=== PATIENT | male | born 1980 | race Hispanic/Latino ===

== ENCOUNTER 2020-01-14 07:55 | Outpatient (CLI) | payer MEDICAID ==
[2020-01-14] MEDS ORDERED: LIDOCAINE (4%) 40 MG/ML TOPICAL SOLN 50 ML BOTTLE TP ONE (08:19)
== END 2020-01-14 07:56 | disposition home or self-care (01) ==
LOC: WOUND 07:55
PROVIDERS: ATTEND Surgery
DX: S71.101A Unspecified open wound, right thigh, initial encounter (principal); L03.115 Cellulitis of right lower limb; G90.09 Other idiopathic peripheral autonomic neuropathy; K21.9 Gastro-esophageal reflux disease without esophagitis; F32.9 Major depressive disorder, single episode, unspecified; F41.9 Anxiety disorder, unspecified; F84.0 Autistic disorder; X58.XXXA Exposure to other specified factors, initial encounter; Y93.89 Activity, other specified; Y92.89 Other specified places as the place of occurrence of the external cause; Y99.8 Other external cause status
CPT/HCPCS: 99205; G0463

== ENCOUNTER 2020-01-29 08:31 | Outpatient (CLI) | payer MEDICAID ==
[2020-01-29] MEDS ORDERED: LIDOCAINE (4%) 40 MG/ML TOPICAL SOLN 50 ML BOTTLE TP ONE (08:32)
== END 2020-01-29 08:32 | disposition home or self-care (01) ==
LOC: WOUND 08:31
PROVIDERS: ATTEND Surgery
DX: S71.101D Unspecified open wound, right thigh, subsequent encounter (principal); L03.115 Cellulitis of right lower limb; K21.9 Gastro-esophageal reflux disease without esophagitis; F84.0 Autistic disorder; X58.XXXD Exposure to other specified factors, subsequent encounter

== ENCOUNTER 2020-02-05 08:35 | Outpatient (CLI) | payer MEDICAID ==
[2020-02-05] MEDS ORDERED: LIDOCAINE (4%) 40 MG/ML TOPICAL SOLN 50 ML BOTTLE TP ONE (09:00)
== END 2020-02-05 08:36 | disposition home or self-care (01) ==
LOC: WOUND 08:35
PROVIDERS: ATTEND Surgery
DX: S61.203A Unspecified open wound of left middle finger without damage to nail, initial encounter (principal); S61.207A Unspecified open wound of left little finger without damage to nail, initial encounter; S61.200A Unspecified open wound of right index finger without damage to nail, initial encounter; S61.206A Unspecified open wound of right little finger without damage to nail, initial encounter; S41.102A Unspecified open wound of left upper arm, initial encounter; L03.115 Cellulitis of right lower limb; K21.9 Gastro-esophageal reflux disease without esophagitis; F84.0 Autistic disorder; X58.XXXA Exposure to other specified factors, initial encounter; Y93.89 Activity, other specified; Y92.89 Other specified places as the place of occurrence of the external cause; Y99.8 Other external cause status

== ENCOUNTER 2020-03-25 09:34 | Outpatient (CLI) | payer MEDICAID ==
[2020-03-25] MEDS ORDERED: LIDOCAINE (4%) 40 MG/ML TOPICAL SOLN 50 ML BOTTLE TP SCH (10:00)
== END 2020-03-25 09:35 | disposition home or self-care (01) ==
LOC: WOUND 09:34
PROVIDERS: ATTEND Surgery
DX: S61.203D Unspecified open wound of left middle finger without damage to nail, subsequent encounter (principal); S61.200D Unspecified open wound of right index finger without damage to nail, subsequent encounter; S41.102D Unspecified open wound of left upper arm, subsequent encounter; L03.115 Cellulitis of right lower limb; K21.9 Gastro-esophageal reflux disease without esophagitis; F84.0 Autistic disorder; X58.XXXD Exposure to other specified factors, subsequent encounter

== ENCOUNTER 2020-04-22 08:41 | Outpatient (CLI) | payer MEDICAID ==
[2020-04-22] MEDS ORDERED: LIDOCAINE (4%) 40 MG/ML TOPICAL SOLN 50 ML BOTTLE TP SCH (09:00)
== END 2020-04-22 08:42 | disposition home or self-care (01) ==
LOC: WOUND 08:41
PROVIDERS: ATTEND Surgery
DX: S61.203D Unspecified open wound of left middle finger without damage to nail, subsequent encounter (principal); S61.200D Unspecified open wound of right index finger without damage to nail, subsequent encounter; S41.102D Unspecified open wound of left upper arm, subsequent encounter; S61.001A Unspecified open wound of right thumb without damage to nail, initial encounter; L03.115 Cellulitis of right lower limb; K21.9 Gastro-esophageal reflux disease without esophagitis; F84.0 Autistic disorder; X58.XXXD Exposure to other specified factors, subsequent encounter; X58.XXXA Exposure to other specified factors, initial encounter; Y93.89 Activity, other specified; Y92.89 Other specified places as the place of occurrence of the external cause; Y99.8 Other external cause status

== ENCOUNTER 2021-08-15 17:28 | Emergency (ER) | payer MEDICAID ==
[2021-08-15] MEDS ORDERED: LORazepam 2 MG/ML VIAL IM STA (17:58)
[2021-08-15] MEDS ORDERED: HALOPERIDOL LACTATE 5 MG/1 ML INJ IM STA (17:58)
[2021-08-15] MEDS ORDERED: diphenhydrAMINE 50 MG/ML VIAL IM STA (17:58)
--- NOTE | 2021-08-15 17:59 | Emergency Department Report ---
ED General Adult HPI - General Chief complaint: Medical Clearance Stated complaint: BRUISING ON BACK Time Seen by Provider: 08/15/21 17:47 Source: patient, family (Patient accompanied by caregiver, not a family member) Mode of arrival: Ambulatory Limitations: Other (Patient is developmentally delayed) - History of Present Illness Initial comments: The patient is a 40-year-old gentleman, who was brought to the hospital by a caregiver, he resides in a personal assisted, with a history of profound developmental delay, who was brought to the hospital with a caregiver articulated request for second opinion. As per the caregiver, the patient was at [facility] for the past 3 to 4 days. He reportedly had a CT scan of his abdomen pelvis which showed only a kidney stone but no other findings. The patient was reportedly discharged from the aforementioned emergency room or department earlier on today, and presents for second opinion. As per his caregiver, he has a new ecchymosis on his posterior flank. Uncertain as to the nature or timing or duration of the ecchymosis. The patient is awake, minimally verbal, not able to describe qualitative nature of symptoms, exacerbating factors relieving factors or aggravating factors. As per the caregiver, since the patient has been back in his care, no fever, syncope, nausea, vomiting or diarrhea. -: unknown - Related Data Allergies Allergy/AdvReac Type Severity Reaction Status Date / Time methylphenidate Allergy Unknown Verified 01/14/20 08:19 [From Ritalin] Penicillins Allergy Unknown Verified 01/14/20 08:19 phenobarbital Allergy Unknown Verified 01/14/20 08:19 ED Review of Systems ROS: Stated complaint: BRUISING ON BACK Other details as noted in HPI Comment: Unobtainable due to pts medical conditions (Patient is developmentally delayed. Review of systems as per caregiver) Constitutional: denies: fever Cardiovascular: denies: syncope Gastrointestinal: denies: abdominal pain Skin: rash Psychiatric: anxiety ED Past Medical Hx - Past Medical History Previous Medical History?: Yes Additional medical history: autism - Surgical History Past Surgical History?: No - Social History Smoking Status: Never Smoker Substance Use Type: None ED Physical Exam - General Limitations: Other (Developmental delay) General appearance: anxious - Head Head exam: Present: atraumatic, normocephalic - Eye Eye exam: Present: normal appearance, EOMI. Absent: nystagmus - ENT ENT exam: Present: normal exam, normal orophraynx, mucous membranes moist, normal external ear exam - Neck Neck exam: Present: normal inspection, full ROM. Absent: tenderness, meningismus - Respiratory Respiratory exam: Present: normal lung sounds bilaterally. Absent: respiratory distress, wheezes, rales, rhonchi, stridor, decreased breath sounds - Cardiovascular Cardiovascular Exam: Present: normal rhythm, tachycardia, normal heart sounds. Absent: bradycardia, irregular rhythm, systolic murmur, diastolic murmur, rubs, gallop - GI/Abdominal GI/Abdominal exam: Present: soft. Absent: distended, tenderness, guarding, rebound, rigid, pulsatile mass - Rectal Rectal exam: Present: deferred - Extremities Exam Extremities exam: Present: normal inspection, full ROM, other (2+ pulses noted in the bilateral upper and lower extremities. There is no palpable cord. negative Homans sign. Muscular compartments are soft. The pelvis is stable.). Absent: pedal edema, calf tenderness - Back Exam Back exam: Absent: normal inspection (Bilateral flank ecchymosis noted), tenderness, CVA tenderness (R), CVA tenderness (L), paraspinal tenderness, vertebral tenderness - Neurological Exam Neurological exam: Present: alert, normal gait, other (There is no facial droop. The tongue is midline. EOMI bilaterally. 5 out of 5 strength in 4 extremities.) - Psychiatric Psychiatric exam: Present: anxious - Skin Skin exam: Present: warm, ecchymosis ED Course Vital Signs 08/15/21 08/15/21 17:36 17:53 Temperature 98.7 F Pulse Rate 102 H Respiratory 19 Rate Blood Pressure 121/52 [Right] O2 Sat by Pulse 98 100 Oximetry - Reevaluation(s) Reevaluation #1: 08/15/21 19:12 Differential diagnosis, including the not limited to: Anemia, thrombocytopenia, renal insufficiency, hepatic insufficiency, fracture ecchymosis, traumatic ecchymosis Assessment and plan: 40-year-old gentleman, who is afebrile, with reassuring vital signs, improving tachycardia, who was reportedly medically cleared and discharged by another emergency department earlier on today, brought to the hospital by caregiver with request for second opinion, with bilateral flank ecchymosis, of unknown nature, acquisition, and duration. Given patient's profound developmental delay, uncertain nature as to ecchymosis, obtain appropriate laboratory studies, noncontrast CT scan of the abdomen pelvis. Patient very anxious, and therefore will require medication with halop eridol, Ativan, and Benadryl, to allow for acquisition of diagnostics. Called up [facility] emergency room, faxed over request for release of medical information form. Spoke to their charge nurse. [facility] emergency room will try to get back to me with verbal report. Have also sent a fax to [facility]'s medical records department, with request for appropriate medical records and documentation. I am told that the medical records department is closed at this time, so we may not be able to obtain patient's medical records. 08/15/21 20:45 Patient is resting comfortably in stretcher. He is in no acute distress. Has not obtained medical records. Laboratory studies reviewed and appreciated. A number of abnormalities are noted, but none of these require emergent evaluation or intervention. Patient can follow-up with a primary care doctor for elevated CK, macrocytic anemia, and nonspecific elevation in AST. He may also follow-up with a primary care doctor for constipation. He may follow-up with a primary care doctor for his right gluteal hematoma. Follow-up with urology for right-sided hydronephrosis. Patient resting comfortably in stretcher, and in no acute distress. ED Medical Decision Making - Lab Data Result diagrams: 08/15/21 19:32 08/15/21 19:32 Vital Signs 08/15/21 08/15/21 17:36 17:53 Temperature 98.7 F Pulse Rate 102 H Respiratory 19 Rate Blood Pressure 121/52 [Right] O2 Sat by Pulse 98 100 Oximetry Critical care attestation.: If time is entered above; I have spent that time in minutes in the direct care of this critically ill patient, excluding procedure time. ED Disposition Clinical Impression: Developmental delay, moderate, Encounter for medical screening examination, Subcutaneous hematoma, Elevated CK, Elevated AST (SGOT), Macrocytic anemia Hydronephrosis Qualifiers: Hydronephrosis type: unspecified Qualified Code(s): N13.30 - Unspecified hydronephrosis Constipation Qualifiers: Constipation type: other constipation type Qualified Code(s): K59.09 - Other constipation Disposition: 04 INTERMEDIATE CARE FACILITY Is pt being admited?: No Does the pt Need Aspirin: No Condition: Good Additional Instructions: Patient had ER evaluation today, which not demonstrate any findings which require emergency medical intervention, therapy or treatment. Patient was found to have a number of nonemergent incidental findings, which should be followed up by a primary care doctor within the next 2 weeks. Please have your primary care doctor contact the medical records department, to obtain copies of laboratory studies and radiology studies, to follow-up on nonemergent incidental abnormal findings. Patient also found to have right-sided hydronephrosis, which should be followed up by a urologist within the next 2 weeks. Advance diet as tolerated, drink plenty of fluids, patient may take [id number] Tylenol or Motrin as needed for physical pain. For constipation, patient may consume fiber, vegetables, lean protein, prune juice, or drink plenty of fluids and water. The [facility] is a local medical clinic. [place] [facility] is a local urologic clinic. Please return to the emergency room right away with new pain, worsened pain, migration of pain, projectile vomiting, change in mental status, confusion, i nability tolerate liquid feeds, new, worsened or different symptoms not present on the initial emergency room evaluation Referrals: PRIMARY CAREMD [Primary Care Provider] - 3-5 Days [facility] [Provider Group] - 3-5 Days [facility] [Provider Group] - 3-5 Days
[2021-08-15 19:59] LABS: Hematocrit 27.8 % (35.5-45.6); Hemoglobin 9.3 gm/dl (11.8-15.2); Mean Corpuscular HGB Conc 33 % (32-34); Mean Corpuscular Volume 98 fl (84-94); Platelet Count 305 K/mm3 (140-440); Red Blood Count 2.83 M/mm3 (3.65-5.03)
[2021-08-15 20:10] LABS: INR 1.02 (0.87-1.13)
[2021-08-15 20:11] LABS: Partial Thromboplastin Time 43.1 Sec. (24.2-36.6)
[2021-08-15 20:14] LABS: Alanine Aminotransferase 38 units/L (7-56); Albumin 3.1 g/dL (3.9-5); Blood Urea Nitrogen 12 mg/dL (9-20); Calcium 8.7 mg/dL (8.4-10.2); Hemolysis Index 11
[2021-08-15 20:31] LABS: BUN/Creatinine Ratio 20
--- NOTE | 2021-08-15 20:35 | Cat Scan Report ---
CT ABDOMEN AND PELVIS WITHOUT IV CONTRAST INDICATION: bilateral posterior flank ecchymosis. COMPARISON: None available. TECHNIQUE: All CT scans at this facility use dose modulation, automated exposure control, iterative reconstructi on or weight based dosing, when appropriate, to reduce radiation dose to as low as reasonably achieva ble. FINDINGS: Lung Bases: No significant abnormality. Skeletal System: No acute abnormality. Remote, chronic lower sacral fracture is noted. ABDOMEN: Liver: A few incidental cysts are noted. Gallbladder: No significant abnormality. Bile Ducts: No significant abnormality. Adrenals: No significant abnormality. Right Kidney: There is right hydronephrosis. Left Kidney: No significant abnormality. Pancreas: No significant abnormality. Spleen: No significant abnormality. Upper GI tract: Moderate hiatal hernia. Lymph Nodes: No significant adenopathy. Aorta: No significant abnormality. Additional Findings: No significant abnormality. PELVIS: Colon: No acute abnormality. Constipation is noted. Urinary Bladder and Distal Ureters: No significant abnormality. Appendix: No significant abnormality. Lymph Nodes: No significant adenopathy. Additional Findings: There is a 14 x 7 x 23 cm right gluteal subcutaneous hematoma. There is surround ing stranding tracking into the right flank the proximal right femur. IMPRESSION: 1. Large right gluteal subcutaneous hematoma extending craniocaudally for approximately 23 cm. No un derlying fracture is seen. 2. There is right hydronephrosis. This is of uncertain etiology/chronicity. 3. No fracture is seen. 4. Constipation. Additional incidental findings as above. Signer Name: Igor Moore MD Signed: 08/15/2021 8:31 PM Workstation Name: [id number]
[2021-08-15 23:51] VITALS: BP 134/62
== END 2021-08-15 21:01 | disposition home or self-care (01) ==
LOC: ED 17:28
DX: N13.30 Unspecified hydronephrosis (principal); L76.32 Postprocedural hematoma of skin and subcutaneous tissue following other procedure; R74.8 Abnormal levels of other serum enzymes; R74.01 Elevation of levels of liver transaminase levels; D53.1 Other megaloblastic anemias, not elsewhere classified; K59.09 Other constipation
CPT/HCPCS: 36415; 74176; 80053; 80164; 80178; 82550; 85027; 85610; 85730; 96372; 99284; J1200; J1630; J2060; 80320; G0480